=== PATIENT | female | born 1990 | race Caucasian/White ===

== ENCOUNTER 2020-01-31 14:49 | Outpatient (REF) | payer BC, SELFPAY ==
--- NOTE | 2020-01-31 13:40 | PAPFT_PTH ---
PATIENT: Zluay Florence LOC: [facility] U#:[id number] AGE/SX: 29/F ROOM: RE01/31/[address]: Adamaris Bautista : 1990 BED: DIS: 01/31/2020 SPEC #: [id number] RECD: 02/01/20 12:56 STATUS: BHUMI RERamya #: [id number] LUCY: 01/31/20 13:[address]: Adamaris Bautista DEPT: [facility] Cytology RECD BY: Mildred Handley ENTERED: 02/01/20 12:56 SP TYPE: PAPFT OTHR DR: Allison Sanchez Tissues: 1 - CX/ENDOCX FOR PAP SMEARS Procedures: PAP THIN PREP/[facility] Screening Comments: [id number] (CHLAMYDIA/GC) (UNSATISFACTORY FOR EVALUATION)
[2020-02-02 15:10] LABS: Chlamydia Result Negative (Negative); GC Result Negative (Negative)
== END 2020-01-31 15:09 ==
LOC: NCHCN 14:49
PROVIDERS: PCP Nurse Practitioner Family; Visit Provider Nurse Practitioner Family
DX: R87.615 Unsatisfactory cytologic smear of cervix (principal); Z11.3 Encounter for screening for infections with a predominantly sexual mode of transmission
CPT/HCPCS: 87491; 87591; 88142

== ENCOUNTER 2020-05-17 17:26 | Outpatient (REF) | payer BC, SELFPAY ==
--- NOTE | 2020-05-17 16:40 | PAPFT_PTH ---
PATIENT: Zulay Florence LOC: [facility] U#:[id number] AGE/SX: 29/F ROOM: RE05/17/[address]: Adamaris Bautista : 1990 BED: DIS: 05/17/2020 SPEC #: [id number] RECD: 05/18/20 12:53 STATUS: BHUMI REQ #: [id number] LUCY: 05/17/20 16:[address]: Adamaris Bautista DEPT: [facility] Cytology RECD BY: Mildred Handley ENTERED: 05/18/20 12:53 SP TYPE: PAPFT OTHR DR: Allison Sanchez Tissues: 1 - CX/ENDOCX FOR PAP SMEARS Procedures: PAP THIN PREP/[facility] Screening Comments: [id number] (UNSATISFACTORY FOR EVALUATION)
== END 2020-05-17 17:46 ==
LOC: NCHCN 17:26
PROVIDERS: PCP Nurse Practitioner Family; Visit Provider Nurse Practitioner Family
DX: Z12.4 Encounter for screening for malignant neoplasm of cervix (principal); R87.615 Unsatisfactory cytologic smear of cervix
CPT/HCPCS: 88142

== ENCOUNTER 2021-01-31 16:41 | Outpatient (REF) | payer OTHER, SELFPAY ==
[2021-01-31 20:59] LABS: HCT 41.8 % (36.0-46.0); HGB 13.7 g/dL (11.2-15.7); MCH 30.2 pg (27.0-33.0); MCHC 32.8 % (32.0-36.0); MCV 92.3 fL (80-95); MPV 10.3 fL (8.0-11.0); Platelet Count 377 10^3/uL (130-400); RBC 4.53 10^6/uL (3.93-5.22); RDW 11.2 % (11.7-14.6); RDW-SD 38.6 fL; WBC 8.21 10^3/uL (4.4-10.8)
[2021-01-31 21:23] LABS: Anion Gap 11.8 mmol/L (3-11); BUN 10 mg/dL (7-18); CO2 24.2 mmol/L (21.0-32.0); CREATININE 0.9 mg/dL (0.55-1.02); Calcium 9.6 mg/dL (8.5-10.1); Calculated LDL 152 mg/dL (<100); Chloride 105 mmol/L (98-107); Cholesterol 250 mg/dL (<200); Glucose 103 mg/dL (74-106); HDL Cholesterol 63 mg/dL (40-60); Potassium 4.4 mmol/L (3.5-5.1); Sodium 141 mmol/L (136-145); TSH (W/Ref FT4) 0.62 uIU/mL (0.36-3.74); Triglyceride 175 mg/dL (<150)
== END 2021-01-31 16:42 | disposition home or self-care (01) ==
LOC: NCHCN 16:41
PROVIDERS: PCP Nurse Practitioner Family; Visit Provider Nurse Practitioner Family
DX: Z00.00 Encounter for general adult medical examination without abnormal findings (principal)
CPT/HCPCS: 80048; 80061; 85027; 84443

== ENCOUNTER 2021-02-14 14:38 | Outpatient (REF) | payer OTHER, SELFPAY ==
--- NOTE | 2021-02-14 14:05 | PAPFT_PTH ---
PATIENT: Zulay Florence LOC: [facility]#:[id number] AGE/SX: 30/F ROOM: RE02/14/[address]: Adamaris Bautista : 1990 BED: DIS: 02/14/2021 SPEC #: [id number] RECD: 02/15/21 12:54 STATUS: BHUMI RERamya #: [id number] LUCY: 02/14/21 14:[address]: Adamaris Bautista DEPT: [facility] Cytology RECD BY: Mildred Handley ENTERED: 02/15/21 12:54 SP TYPE: PAPFT OTHR DR: Allison Sanchez Tissues: 1 - CX/ENDOCX FOR PAP SMEARS Procedures: PAP THIN PREP/[facility] Screening Comments: [id number]
== END 2021-02-14 14:39 | disposition home or self-care (01) ==
LOC: NCHCN 14:38
PROVIDERS: PCP Nurse Practitioner Family; Visit Provider Nurse Practitioner Family
DX: Z12.4 Encounter for screening for malignant neoplasm of cervix (principal)
CPT/HCPCS: 88142

== ENCOUNTER 2022-11-17 13:23 | Outpatient (REF) | payer BC, SELFPAY ==
[2022-11-17 15:49] LABS: Calculated LDL 137 mg/dL (<100); Cholesterol 197 mg/dL (<200); HDL Cholesterol 43 mg/dL (40-60); Triglyceride 87 mg/dL (<150)
== END 2022-11-17 13:24 | disposition home or self-care (01) ==
LOC: NCHCN 13:23
PROVIDERS: PCP Nurse Practitioner Family; Visit Provider Family Medicine
DX: Z00.00 Encounter for general adult medical examination without abnormal findings (principal); Z13.220 Encounter for screening for lipoid disorders
CPT/HCPCS: 80061

== ENCOUNTER 2024-12-07 12:04 | Outpatient (REF) | payer BC, SELFPAY ==
--- NOTE | 2024-12-07 15:15 | PAPFT_PTH ---
PATIENT: Zulay Florence LOC: [facility]#:[id number] AGE/SX: 34/F ROOM: RE12/07/[address]: RYAN: 1990 BED: DIS: 12/08/2024 SPEC #: [id number] RECD: 12/08/24 13:07 STATUS: BHUMI MERRILL #: [id number] LUCY: 12/07/24 15:[address]: Lakisha Shepherd DEPT: [facility] Cytology RECD BY: Mildred Handley ENTERED: 12/08/24 13:08 SP TYPE: PAPFT OTHR DR: Allison Sanchez Tissues: 1 - CX/ENDOCX FOR PAP SMEARS Procedures: PAP THIN PREP/[facility] Screening HPV DNA PROBE Comments: [id number] (HPV 16 & 18/45)
== END 2024-12-08 09:00 | disposition home or self-care (01) ==
LOC: NCHCN 12:04
PROVIDERS: PCP Nurse Practitioner Family; Visit Provider Family Medicine
DX: Z12.4 Encounter for screening for malignant neoplasm of cervix (principal); Z00.00 Encounter for general adult medical examination without abnormal findings
CPT/HCPCS: 88142; 87624